=== PATIENT | female | born 2000 | race Caucasian/White ===

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

== ENCOUNTER → 2020-04-13 10:19 | Outpatient (CLI) | payer OTHER, SELFPAY ==
--- NOTE | ~2020-04-13 | XR_ITS ---
EXAMINATION: XR thoracic spine 3V DATE: 04/13/2020 11:10 INDICATION: Thoracic spine pain TECHNIQUE: One AP, lateral and lateral swimmer's views of the thoracic spine were obtained. COMPARISON: Chest radiograph dated 04/28/2019 FINDINGS: 5 degrees thoracic levocurvature and mild thoracic kyphosis. Vertebral body heights are normal. Disc heights are normal. Visualized portions of the lungs are clear. Heart size and mediastinal silhouette are normal. IMPRESSION: 1. Mild thoracic kyphosis and minimal levocurvature. Reviewed, dictated and finalized at location B.
--- NOTE | ~2020-04-13 | US_ITS ---
EXAMINATION: US abdomen limited DATE: 04/13/2020 10:46 INDICATION: Right upper quadrant pain TECHNIQUE: Multiple grayscale and Doppler ultrasound images of the abdomen were obtained. COMPARISON: 04/17/2018 FINDINGS: The head, body, and tail of the pancreas are normal. The liver is normal with normal echoge nicity and echotexture. No surface nodularity. Normal hepatopetal flow in the main portal vein. The g allbladder is normal with no abnormal wall thickening, pericholecystic fluid or stones. The normal co mmon bile duct measures 3 mm. There was no sonographic Mullen sign. IMPRESSION: 1. Normal sonographic study of the gallbladder. Reviewed, dictated and finalized at location A.
== END ==
PROVIDERS: PCP Family Medicine; Visit Provider Family Medicine
DX: R10.11 Right upper quadrant pain (principal); M54.6 Pain in thoracic spine
CPT/HCPCS: 72072; 76705

== ENCOUNTER 2020-09-12 17:37 | Outpatient (CLI) | payer OTHER, SELFPAY | END 2020-09-12 17:38 | disposition home or self-care (01) | LOC: ANHCOVIDVC 17:37 | PROVIDERS: PCP Family Medicine | DX: Z23 Encounter for immunization (principal) | CPT/HCPCS: 0001A; 91300 ==

== ENCOUNTER 2020-10-03 17:42 | Outpatient (CLI) | payer OTHER, SELFPAY | END 2020-10-03 17:43 | disposition home or self-care (01) | LOC: ANHCOVIDVC 17:42 | PROVIDERS: PCP Family Medicine | DX: Z23 Encounter for immunization (principal) | CPT/HCPCS: 0002A; 91300 ==

== ENCOUNTER 2023-09-08 14:06 | Outpatient (CLI) | payer OTHER, SELFPAY ==
--- NOTE | ~2023-09-08 | XR_ITS ---
EXAMINATION: XR tibia fibula RT 2V DATE: 09/08/2023 14:26 INDICATION: Right lower leg pain TECHNIQUE: AP and lateral views of the right lower leg were obtained COMPARISON: None. FINDINGS: Bone alignment is normal. No fracture. Joint spaces are normal. No cortical erosions or periostitis. Soft tissues are unremarkable. No ankle joint effusion. IMPRESSION: 1. Negative right tibia/fibula radiographs. Reviewed, dictated and finalized at location L.
== END 2023-09-08 14:07 ==
PROVIDERS: PCP Family Medicine; Visit Provider Physician Assistant Medical
DX: M79.604 Pain in right leg (principal)
CPT/HCPCS: 73590

== ENCOUNTER 2024-04-14 09:24 | Emergency (ER) | payer OTHER, SELFPAY ==
[2024-04-14 09:38] VITALS: BP 115/68; PULSE 107; RESP 18; TEMP 36.9; O2SAT 100
--- NOTE | 2024-04-14 09:54 | ED.URI ---
HPI - URI/Sore Throat General Chief Complaint: Upper Respiratory Infection Stated Complaint: cold symptoms Time Seen by Provider: 04/14/24 09:50 Source: patient, RN notes reviewed and old records reviewed Mode of arrival: ambulatory Limitations: no limitations History of Present Illness HPI Narrative: 24 year old female patient who presents to [facility] with complaints of sore throat with productive cough with expectoration of green phlegm, temperature max of 101F with some head pressure since Thursday evening. Patient reports that she does have some body aches especially to neck and upper back. Patient reports that she has been taking Sudafed and Tylenol . No known exposure to ill contacts MD elicited complaint: fever, cough, sore throat and other (body aches) Onset (ago): day(s) (2) Pain scale (0-10): 3 Description of mucous: yellow and green Able to tolerate fluids by mouth: Yes Treatments prior to arrival: acetaminophen and other (Sudafed) Related Data Home Medications Medication Instructions Recorded Confirmed cholecalciferol (vitamin D3) 125 125 mcg PO DAILY 03/12/21 04/14/24 mcg (5,000 unit) capsule desvenlafaxine succinate 100 mg 100 mg PO DAILY 03/12/21 04/14/24 tablet,extended release 24 hr (Pristiq) multivitamin 1 tablet PO DAILY 03/12/21 04/14/24 vitamin B complex (B 1 tablet PO DAILY 03/12/21 04/14/24 Complex-Vitamin B12 tablet) Allergies Allergy/AdvReac Type Severity Reaction Status Date / Time azithromycin Allergy Unknown Hives Verified 04/14/24 09:37 Review of Systems Review of Systems: CONSTITUTIONAL: Reports malaise, chills, sweats, or fever. EYES: Denies visual changes, redness, or discharge. ENT: Reports rhinorrhea, congestion, sinus pain, no otalgia and positive sore throat. CARDIOVASCULAR: Denies chest pain, palpitations, or edema. RESPIRATORY: Reports cough.? Denies dyspnea. GASTROINTESTINAL: Denies abdominal pain, nausea, vomiting, diarrhea SKIN: Denies rash or itching. MUSCULOSKELETAL: Reports some myalgia. NEUROLOGIC: Denies headache. All systems reviewed & are unremarkable except as noted in HPI and below PMFSH Past Medical History Medical History Achilles tendon contracture, right Anxiety Congestion of nasal sinus Depression Insulin resistance Metatarsalgia of right foot Obstructive sleep apnea Surgical History Surgical History History of eye surgery 2004 History of tonsillectomy 2012 Family History Family History Other Diabetes mellitus Hypertension Social History Social History Smoking status: Never smoker Second hand tobacco smoke exposure: No Alcohol intake: never Substance use: never Substance use type: does not use Lack of Transportation: No Lack of Food: Never True Current Housing: I Have Housing Concerned About Future Housing: No Difficulty Paying Gas/Electric Bills: No Difficulty Paying for Meds: No Currently Unemployed: No Education: High School Diploma/GED Difficulty w/ Childcare or Family Care: No Living arrangements: with family Occupation/Education: student Additional occupation/education comments: college student Gender identity (if verbalized by the patient): Female Sexual Orientation (if Verbalized by the Patient): Straight or Heterosexual Comments At time of signature, agree with nursing past medical, surgical, social and family history. There is no relevant family history pertinent to the presenting complaint Exam Narrative: GENERAL: Well-appearing, well-nourished, and in no acute distress. HEAD: Normocephalic EYES: PERRLA, conjunctivae clear ENT: Nares clear, turbinates edematous and erythematous, clear discharge. Mucous membranes moist. TM pear
[2024-04-14 10:31] LABS: EDCOVIDSCREEN Positive (Negative); EDINFLUASCREEN Negative (Negative); EDINFLUBSCREEN Negative (Negative); EDSTREPNEGPOS1 Negative (Negative)
== END 2024-04-14 10:38 | disposition home or self-care (01) ==
PROVIDERS: Emergency Provider Registered Nurse; PCP Family Medicine
DX: U07.1 COVID-19 (principal); F32.A Depression, unspecified
CPT/HCPCS: 87081; 87426; 87804; 87880; 99213; G0463

== ENCOUNTER 2024-06-14 09:17 | Outpatient (CLI) | payer OTHER, SELFPAY ==
--- NOTE | ~2024-06-14 | US_ITS ---
Limited Abdominal Sonogram: Real-time sonographic imaging of the right upper quadrant was performed. Clinical History: Abnormal serum enzyme levels Findings: The liver appears normal with no evidence of mass lesion or bile duct dilatation. Main por tarah vein demonstrates normal direction of flow. The gallbladder is well distended, and centimeters ec hogenic, shadowing gallstone. The common bile duct measures 4 mm. The visualized pancreas, aorta, an d IVC are unremarkable. Impression: Cholelithiasis. Reviewed, dictated and finalized at location M. [employer]IV[employer]ATOR Impression: Cholelithiasis.
== END 2024-06-14 09:18 | disposition home or self-care (01) ==
PROVIDERS: PCP Family Medicine; Visit Provider Student in an Organized Health Care Education/Training Program
DX: R74.8 Abnormal levels of other serum enzymes (principal); K80.20 Calculus of gallbladder without cholecystitis without obstruction
CPT/HCPCS: 76705